=== PATIENT | female | born 1980 | race Caucasian/White ===

== ENCOUNTER 2018-07-26 13:50 | Outpatient (CLI) | payer OTHER ==
[~2018-07-26] VITALS: Ht 170.2 cm; Wt 103.2 kg
[~2018-07-26 13:50] MED LIST: PRENATAL VITAMI1 TA5 PO; VITAMIN B650 MG; ZANTAC 150150 MG PO
--- NOTE | 2018-07-26 13:50 | NUR ---
Pt arrives on unit ambulatory for contractions. G8L5 at 34.6 weeks gestation. Per pt, "my and I had 'fun' last night for the first time since I've been . I lost my mucous plug and had bleeding for five hours after. Last I lost my mucous plug and had a baby in two hours." Pt denies LOF. Reports good movement. Changed into a clean gown. EFM and toco applied. SVE per this RN / with bloody show. Dr. Mares notified. See physician notification. Admission assessment completed. Bed locked in low position. Call light within reach. Pt updated on POC. No questions or concerns at this time.
[2018-07-26] MEDS ORDERED: ZYRTEC5 MG PO (14:09)
[2018-07-26 14:50] VITALS: BP 133/94; PULSE 127; TEMP 98.1
--- NOTE | 2018-07-26 15:00 | NUR ---
SVE unchanged. Dr. Mares notified. See physician notification. Pt requests to stay x1 hour for SVE recheck. LR bolus infused.
[2018-07-26 15:31] VITALS: BP 137/73; PULSE 105
--- NOTE | 2018-07-26 15:31 | NUR ---
Pt up to bathroom.
--- NOTE | 2018-07-26 16:19 | NUR ---
Discharge instructions given. No questions or concerns at this time. IV site d/c. Pt leaves unit ambulatory with family.
== END 2018-07-26 16:20 | disposition home or self-care (01) ==
LOC: LDRO 13:50 → LDR 14:00 → LDRO 16:20
DX: O62.9 Abnormality of forces of labor, unspecified (principal); Z3A.34 34 weeks gestation of pregnancy
CPT/HCPCS: OP; J7120

== ENCOUNTER 2018-07-29 20:10 | Outpatient (CLI) | payer OTHER ==
[~2018-07-29] VITALS: Ht 170.2 cm; Wt 103.2 kg
[~2018-07-29 20:10] MED LIST changes: +ZYRTEC5 MG PO
--- NOTE | 2018-07-29 20:20 | NUR ---
Pt arrived on unit escorted by her mother and with complaints of contractions starting this evening. Pt reports some leaking today but denies any vaginal bleeding. Pt also reports normal movement. EFM and toco monitors placed. Vital signs WNL. SVE by this RN 3-4cm/50/unable to determine vertex position. Plan of care reviewed.
[2018-07-29 20:25] VITALS: BP 145/88; PULSE 100; TEMP 98.4
--- NOTE | 2018-07-29 21:15 | NUR ---
Dr. Neely at the bedside. FHR tracing and maternal vitals reviewed. US done to verify vertex. SVE per . Orders for oral hydration and terbutaline SQ received.
--- NOTE | 2018-07-29 22:20 | NUR ---
Orders for discharge home with follow up instructions and precautions given. Information reviewed with pt. Pt verbalized an understanding, agrees with the plan and states no questions or concerns at this time.
[2018-07-29 22:25] VITALS: BP 140/85; PULSE 99
== END 2018-07-29 22:35 | disposition home or self-care (01) ==
LOC: LDRO 20:10
DX: O62.9 Abnormality of forces of labor, unspecified (principal); Z3A.35 35 weeks gestation of pregnancy
CPT/HCPCS: J3105

== ENCOUNTER 2018-08-21 07:15 | Inpatient (IN) | payer OTHER ==
[2018-08-21] VITALS (36 sets, daily range): BP systolic 122–171; BP diastolic 60–108; PULSE 88–115; TEMP 97.8–98.9
[~2018-08-21] VITALS: Ht 167.6 cm; Wt 108.2 kg
--- NOTE | 2018-08-21 07:20 | NUR ---
0720- Pt arrives on unit ambulatory for scheduled induction with , Chris. Oriented to room. Pt into bathroom to change into gown. 07- Pt into bed, EFM and TOCO on and tracing. Assessment completed. BP elevated, will monitor. IV start and labs obtained. Consents explained and signed. Call light within reach.
[2018-08-21] MEDS ORDERED: TYLENOL 500MG500 MG PO (07:35)
[2018-08-21 08:31] LABS: BASO % 0.5 % (0.0-2.0); EOS # 0.1 (0.0-0.7); GRAN # 5.5 (1.4-6.5); GRAN % 68.5 % (42.2-75.2); LYMPH # 1.9 (1.2-3.4); LYMPH % 23.3 % (20.0-51.0); MEAN CELL VOLUME 88 fl (80.0-100.0); MEAN CORPUSCULAR HEMOGLOBIN 30 pg (27.0-31.0); MEAN CORPUSCULAR HGB CONC 34 g/dl (33.0-37.0); MEAN PLATELET VOLUME 10.9 fl (7.4-10.4); MONO # 0.5 (0.1-0.6); MONO % 6.2 % (1.7-9.3); PLATELET COUNT 252 K/mm3 (130-400); RED BLOOD COUNT 4.04 M/mm3 (4.10-5.30); REDCELL DISTRIBUTION WIDTH-CV 13.4 % (11.5-14.5)
[2018-08-21 08:40] LABS: HEMATOCRIT 35.5 % (37.0-47.0)
[2018-08-21 08:41] LABS: ALBUMIN 3.2 gm/dL (3.5-5.0); BILIRUBIN,TOTAL 0.3 mg/dL (0.0-1.0); CREATININE, serum 0.56 (0.52-1.25); POTASSIUM 3.6 mmol/L (3.4-5.0); TOTAL PROTEIN 6.4 gm/dL (6.4-8.2)
[2018-08-21 09:34] LABS: COLLECTION METHOD CLEAN CATCH
[2018-08-21 09:41] LABS: MUCOUS Present /lpf; PH 7 (5-8); SQUAMOUS EPITHELIAL 0-2 /hpf; URINE APPEARANCE Clear; URINE BACTERIA None Seen /hpf; URINE BILIRUBIN Negative (NEGATIVE); URINE BLOOD Negative (NEGATIVE); URINE COLOR Straw; URINE GLUCOSE Negative (NEGATIVE); URINE KETONE Negative (NEGATIVE); URINE LEUKOCYTE ESTERASE Negative (NEGATIVE); URINE NITRATE Negative (NEGATIVE); URINE PROTEIN(semi-quant) Negative (NEGATIVE); URINE UROBILINOGEN Negative (NEGATIVE); URINE WBC 0-2 /hpf
--- NOTE | 2018-08-21 14:10 | NUR ---
1357- Dr Neely at bedside. SVE 9/100/-1. Pt uncomfortable but tolerating contractions well. MD to nurses station. 1405- SVE by this RN, Complete/0 station. Pt complaining of pressure and needing to push. DR Neely called to bedside. Pt and room prepped for delivery. William Frances, Nursery RN at bedside. 1410- Pt pushes with one UC. of viable male infant. Spontaneous crying noted. tended to by nursery RN. Cord clamped and cut. Cord segment and cord blood obtained. Pitocin off. 1417- Spontaneous delivery of placenta. Pitocin restarted at 333mls/hr. Fundus massaged to firm by . Perinuem intact. Pericare completed. Clean chux under Pt, ice pack to perinuem. Pt tolerated well. Infant with mother skin-2-skin.
[2018-08-22 02:30] VITALS: BP 140/82; PULSE 94; TEMP 97.7
[2018-08-22 07:50] VITALS: BP 142/72; PULSE 102; TEMP 98
--- NOTE | 2018-08-22 11:24 | NUR ---
Initial visit; Patient thanked Supervisor Mixing for offering congratulations and God's blessings for the of her daughter. Supervisor Mixing thanked mom for choosing [facility].
[2018-08-22 16:10] VITALS: BP 145/78; PULSE 109; TEMP 98.1
[2018-08-22 20:30] VITALS: BP 136/80; PULSE 88; TEMP 98.2
[2018-08-23 08:00] VITALS: BP 140/89; PULSE 93; TEMP 98.9
[2018-08-23] MEDS ORDERED: IBU800 M1 PO (12:31)
== END 2018-08-23 13:30 | disposition home or self-care (01) | DRG 807 ==
LOC: OB 07:15 → LDR 07:15 → OB 09:29
PROVIDERS: ADMIT Student in an Organized Health Care Education/Training Program
PROC: 10E0XZZ Delivery of Products of Conception, External Approach (ICD-10-PCS; principal; 2018-08-21)
PROC: 3E033VJ Introduction of Other Hormone into Peripheral Vein, Percutaneous Approach (ICD-10-PCS; 2018-08-21)
DX: O99.214 Obesity complicating childbirth (principal); Z37.0 Single live birth; Z3A.39 39 weeks gestation of pregnancy; J30.1 Allergic rhinitis due to pollen
CPT/HCPCS: J0595; J2590; J7120